=== PATIENT | male | born 1945 | race Caucasian/White ===

== ENCOUNTER 2018-04-06 21:49 | Emergency (ER) | payer OTHER ==
[2018-04-06 22:19] LABS: Absolute Lymphocytes (CBC) 1.1 K/uL (0.7-4.9); Absolute Monocytes 0.7 K/uL (0.1-1.3); Absolute Neutrophil 6.3 K/uL (1.8-8.0); Basophils % 0.3 % (0-1.3); Eosinophils % 1.7 % (0-4.4); Hematocrit 36.4 % (39.6-49.0); MCH 30.9 pg (27.0-35.0); MPV 8.2 fL (7.6-11.3); Monocytes % 8.7 % (3.3-12.3); Protime INR 1.08
[2018-04-06 22:29] LABS: Potassium 4.1 mmol/L (3.5-5.1)
[2018-04-06] MEDS ORDERED: ASPIRIN 600 MG/SUPP PR ONE (22:51)
[2018-04-06] MEDS ORDERED: FOLIC ACID 5 MG/ML VIAL ONE (22:52)
[2018-04-06 23:06] LABS: Urine Blood NEGATIVE (NEG); Urine Glucose NEGATIVE (NEG); Urine Protein NEGATIVE (NEG); Urine Specific Gravity 1.025 (1.005-1.030)
[2018-04-06 23:14] LABS: Urine Bacteria <20 /HPF (NONE SEEN); Urine Culture Reflex Order NOT NEEDED; Urine RBC NONE SEEN /HPF (NONE SEEN)
--- NOTE | 2018-04-06 23:18 | ER ---
Nurse's Notes [facility] Name: Geoffrey Borja Age: 72 yrs Sex: Male : 1945 Arrival Date: 04/06/2018 Time: 21:50 Bed 18 Private MD: Diagnosis: Weakness-Lower Extremities;Difficulty in walking, not elsewhere classified;Speech disturbances, not elsewhere classified;Dysphagia, unspecified Presentation: 04/06 21:50 Presenting complaint: Child states: SLURRED SPEECH AND OFF BALANCE SINCE THIS bp AFTERNOON. Transition of care: patient was not received from another setting of care. An acute neurological deficit is present. The charge nurse has been notified. The patient has been moved to a treatment area. The patients blood glucose was checked before arriving to the hospital and was found to be normal. Onset of symptoms was April 06, 2018 at 17:00. Risk Assessment: Do you want to hurt yourself or someone else? Patient reports no desire to harm self or others. Initial Sepsis Screen: Does the patient meet any 2 criteria? No. Patient's initial sepsis screen is negative. Does the patient have a suspected source of infection? No. Patient's initial sepsis screen is negative. Care prior to arrival: None. 21:50 Method Of Arrival: Wheelchair bp 21:50 Acuity: KOKO 1 bp Triage Assessment: 22:00 The onset of the patients symptoms was April 06, 2018 at 17:00. General: Appears in no bp apparent distress. comfortable, slender, Behavior is calm, cooperative. Pain: Denies pain. Neuro: Level of Consciousness is awake, alert, obeys commands, Oriented to person, place, situation, Supervisor Paste Mixing are equal bilaterally Moves all extremities. Gait is shuffling, Speech is slurred, Reports dizziness, weakness in right leg and left leg. Stroke Activation: Symtpom onset >3 hours and < 6 hours Physician: Stroke Attending; Name: ; Notified At: ; Arrived At: Physician: Chief Stroke Resident; Name: ; Notified At: ; Arrived At: Physician: Stroke Resident; Name: ; Notified At: ; Arrived At: Physician: ED Attending; Name: ELSA; Notified At: 22:00; Arrived At: 22:00 Physician: ED Resident; Name: ; Notified At: ; Arrived At: Historical: - Allergies: 22:13 No Known Allergies; bp - Home Meds: 22:13 aspirin 325 mg Oral tab 1 tab once daily [Active]; atorvastatin 80 mg Oral tab 1 tab bp once daily [Active]; carbidopa-levodopa 25-100 mg Oral TbER 1 tab 3 times per day [Active]; clopidogrel 75 mg Oral tab 1 tab once daily [Active]; finasteride 5 mg Oral tab 1 tab once daily [Active]; gabapentin 100 mg Oral cap 1 caps bedtime [Active]; lisinopril 20 mg Oral tab 1 tab once daily [Active]; multivitamin Oral cap [Active]; - PMHx: 22:13 CVA; Diabetes - NIDDM; Hypertension; neuropathy; bp - Immunization history:: Adult Immunizations up to date. - Social history:: Smoking status: Patient/guardian denies using tobacco. - Ebola Screening: : Patient negative for fever greater than or equal to 101.5 degrees Fahrenheit, and additional compatible Ebola Virus Disease symptoms Patient denies exposure to infectious person Patient denies travel to an Ebola-affected area in the 21 days before illness onset No symptoms or risks identified at this time. Screenin:30 Abuse screen: Denies threats or abuse. Denies injuries from another. Nutritional ao screening: No deficits noted. Tuberculosis screening: No symptoms or risk factors identified. Fall Risk Fall in past 12 months (25 points). Secondary diagnosis (15 points) impaired mobility, IV access (20 points). Ambulatory Aid- Crutches/Cane/Walker (15 pts). Gait- Weak (10 pts.). Mental Status- Overestimates/Forgets Limitations (15 pts.). Total Miguel Fall Scale indicates High Risk Score (45 or more points). Fall prevention measures have been instituted. Placed Close to Nursing Station Frequent Obs/Assessments Occuring As available patient and family educated on Fall Prevention Program and Strategies. Assessment: 22:05 General: Appears in no apparent distress. comfortable, slender, well groomed, well ao developed, well nourished, Behavior is calm, listless. Pain: Denies pain. Neuro: Level of Consciousness is awake, confused, listless, Oriented to person, place, time, Moves all extremities. Weakness in right leg(s) Speech is slurred, Facial droop on right. Cardiovascular: Heart tones S1 S2 Capillary refill < 3 seconds Patient's skin is warm and dry. Respiratory: Airway is patent Respiratory effort is even, unlabored, Respiratory pattern is regular, symmetrical. GI: Abdomen is non-distended. : No signs and/or symptoms were reported regarding the genitourinary system. EENT: No signs and/or symptoms were reported regarding the EENT system. Derm: Skin is intact, Skin is pink, warm \T\ dry. normal, Skin temperature is warm. Musculoskeletal: Circulation, motion, and sensation intact. Range of motion: intact in all extremities. 22:13 The patient has not been NPO before screening. The patient is alert, and able to follow bp commands. The patient exhibits slurred or garbled speech. The patient is not exhibiting difficulty speaking. The patient does not exhibit difficulty understanding words. The patient is able to swallow own secretions with no drooling or need for suction. The patient did not tolerate one teaspoon of water. Drooling, immediate coughing, gurgling, or clearing of the throat was noted. Bedside swallow screening discontinued. Patient kept NPO until cleared by Speech Therapy or Physician. The patient failed the bedside swallow screening. The patient will be kept NPO until cleared by Speech Therapy or Physician. Provider notified of bedside swallow screening results: Jeffrey Martinez MD. Reassessment: PT RETURNED FROM CT. FAIL B/S SWALLOW SCREEN. 22:13 The patient did not tolerate 90mL of water. Drooling, immediate coughing, gurgling, or bp clearing of the throat was noted. Bedside swallow screening discontinued. Patient kept NPO until cleared by Speech Therapy or Physician. 22:32 Reassessment: Patient felt Swallow screen. Will keep NPO until further evaluation. ao 23:08 Reassessment: Patient appears in no apparent distress at this time. Patient and/or ao family updated on plan of care and expected duration. Pain level reassessed. Patient is alert, oriented x 3, equal unlabored respirations, skin warm/dry/pink. Patient to be transferred. 23:26 Reassessment: 2149 Patient arrive, 2149 Last know well was 1700, 2200 ED Physician at ao bedside, 2199 Called code stroke, [address], 2221 Accu check completed, 2202 IV started 20 G right FA, 2203 Labs sent, 2216 EKG done, 2216 PCXR, 2216 Bed swallow screen done, [address], 2225 Decision to transferred patient by Dr Martinez and HUNG Ochoa. 23:34 Reassessment: [address] Martinez by Dr Chaves. ao 23:34 Reassessment: Called report to NORM Zavala and was on hold for about 10 Min. Nurse ao will call back to get report. 23:49 Reassessment: Called back and report was in process to be given to RADHA Wiggins. Room ao assignment was change by the transport center. Patient to go to a different unit. Transfer center will call back with new nurse assigned to patient. 04/07 00:31 T-PA (Activase) Screening: Contraindications: Other: SS off time frame. ao Vital Signs: 04/06 22:00 BP 148 / 82; Pulse 77; Resp 16; Pulse Ox 96% ; Weight 78.02 kg; Height 5 ft. 9 in. bp (175.26 cm); 22:30 BP 139 / 80; Pulse 76; Resp 18; Pulse Ox 97% ; ao 23:00 BP 121 / 88; Pulse 66; Resp 16; Pulse Ox 97% on R/A; ao 04/07 00:00 BP 133 / 78; Pulse 74; Resp 18; Pulse Ox 98% on R/A; ao 00:30 BP 124 / 72; Pulse 72; Resp 16; Pulse Ox 97% on R/A; ao 08 22:00 Body Mass Index 25.40 (78.02 kg, 175.26 cm) bp NIH Stroke Scale Scores: 04/06 22:00 NIHSS Score: 4 bp 22:32 NIHSS Score: 3 cp ED Course: 21:50 Patient arrived in ED. es 22:00 Inserted saline lock: 20 gauge in right antecubital area, using aseptic technique. bp Blood collected. 22:03 Daniel Pleitez, RN is Primary Nurse. ao 22:11 Triage completed. bp 22:15 Arm band placed on. bp 22:18 Ct Stroke Brain Wo Cont In Process Unspecified. EDMS 22:19 Kaden Carlos PA is PHCP. cp 22:19 Jeffrey Martinez MD is Attending Physician. cp 22:24 Stroke CXR 1 View In Process Unspecified. EDMS 22:31 Patient has correct armband on for positive identification. quality assurance monitor final on. Pulse ao ox on. NIBP on. 04/07 00:30 No provider procedures requiring assistance completed. Patient transferred, IV remains ao in place. Administered Medications: 04/06 22:56 Drug: Aspirin Suppository 300 mg Route: NC; ao 08 00:32 Follow up: Response: No adverse reaction ao 08 22:56 Drug: foLIC Acid 1 mg Route: IVPB; Site: right forearm; ao 08 00:33 Follow up: IV Status: Completed infusion; IV Intake: 15ml ao Point of Care Testing: Blood Glucose: 04/06 22:31 Blood Glucose: 124 mg/dL; ao Ranges: Intake: 04/07 00:33 IV: 15ml; Total: 15ml. ao Outcome: 04/06 23:17 ER care complete, transfer ordered by MD. rand 04/07 00:31 Transferred by ground EMS to [facility], Transfer form completed. ao X-rays sent w/ patient. Condition: stable Instructed on the need for transfer. 00:32 Patient left the ED. ao NIH Stroke Scale - NIH Stroke Score Date: 04/06/2018 Time: 22:00 Total Score = 4 1a. Level of Consciousness (LOC) - 0(Alert) 1b. Level of Consciousness (LOC) (Year \T\ Age) - 1(One) 1c. LOC Commands (Open \T\ Closes Eyes/Mortgage Loan Coordinator) - 0(Both) 2. Best Gaze (Lateral Gaze Paresis) - 0(Normal) 3. Visual Field Loss - 0(No visual loss) 4. Facial Palsy - 1(Minor Paralysis) 5a. Left Arm: Motor (10-second hold) - 0(No drift) 5b. Right Arm: Motor (10-second hold) - 0(No drift) 6a. Left Leg: Motor (5-second hold - always test supine) - 0(No drift) 6b. Right Leg: Motor (5-second hold - always test supine) - 1(Drift) 7. Limb Ataxia (finger/nose \T\ heel/pang - test with eyes open) - 0(Absent) 8. Sensory Loss (pinprick arms/legs/face) - 0(Normal) 9. Best Language: Aphasia (description/naming/reading) - 0(No aphasia) 10. Dysarthria (speech clarity - read or repeat words) - 1(Mild to Moderate) 11. Extinction and Inattention (visual/tactile/auditory/spatial/personal) - 0(No abnormality) Initials: bp NIH Stroke Scale - NIH Stroke Score Date: 04/06/2018 Time: 22:32 Total Score = 3 1a. Level of Consciousness (LOC) - 0(Alert) 1b. Level of Consciousness (LOC) (Year \T\ Age) - 0(Both) 1c. LOC Commands (Open \T\ Closes Eyes/Mortgage Loan Coordinator) - 0(Both) 2. Best Gaze (Lateral Gaze Paresis) - 0(Normal) 3. Visual Field Loss - 0(No visual loss) 4. Facial Palsy - 1(Minor Paralysis) 5a. Left Arm: Motor (10-second hold) - 0(No drift) 5b. Right Arm: Motor (10-second hold) - 0(No drift) 6a. Left Leg: Motor (5-second hold - always test supine) - 0(No drift) 6b. Right Leg: Motor (5-second hold - always test supine) - 1(Drift) 7. Limb Ataxia (finger/nose \T\ heel/pang - test with eyes open) - 0(Absent) 8. Sensory Loss (pinprick arms/legs/face) - 0(Normal) 9. Best Language: Aphasia (description/naming/reading) - 0(No aphasia) 10. Dysarthria (speech clarity - read or repeat words) - 1(Mild to Moderate) 11. Extinction and Inattention (visual/tactile/auditory/spatial/personal) - 0(No abnormality) Initials: cp Signatures: Dispatcher [employer] Rosalba Rodríguez Corey, PA PA cp Ortiz, Alex, RN RN ao Peltier, Brian, RN RN bp
--- NOTE | 2018-04-06 23:18 | EDPHYS ---
Physician Documentation [facility] Name: Geoffrey Borja Age: 72 yrs Sex: Male : 1945 Arrival Date: 04/06/2018 Time: 21:50 Bed 18 Private MD: ED Physician Jeffrey Martinez HPI: 04/06 22:15 This 72 yrs old Male presents to ER via Wheelchair with complaints of S/S of cp Possible Stroke. 22:15 The patient's problem is reported as weakness, in the right lower extremity, in the cp left lower extremity, difficulty walking and slurred speech. 22:15 Onset: The symptoms/episode began/occurred today, approximately 1800. Duration: This cp was a single incident. Associated signs and symptoms: Pertinent negatives: abdominal pain, blurred vision, chest pain, confusion, headache, palpitations, vomiting. Severity of symptoms: in the emergency department the symptoms are unchanged. Historical: - Allergies: 22:13 No Known Allergies; bp - Home Meds: 22:13 aspirin 325 mg Oral tab 1 tab once daily [Active]; atorvastatin 80 mg Oral tab 1 tab bp once daily [Active]; carbidopa-levodopa 25-100 mg Oral TbER 1 tab 3 times per day [Active]; clopidogrel 75 mg Oral tab 1 tab once daily [Active]; finasteride 5 mg Oral tab 1 tab once daily [Active]; gabapentin 100 mg Oral cap 1 caps bedtime [Active]; lisinopril 20 mg Oral tab 1 tab once daily [Active]; multivitamin Oral cap [Active]; - PMHx: 22:13 CVA; Diabetes - NIDDM; Hypertension; neuropathy; bp - Immunization history:: Adult Immunizations up to date. - Social history:: Smoking status: Patient/guardian denies using tobacco. - Ebola Screening: : Patient negative for fever greater than or equal to 101.5 degrees Fahrenheit, and additional compatible Ebola Virus Disease symptoms Patient denies exposure to infectious person Patient denies travel to an Ebola-affected area in the 21 days before illness onset No symptoms or risks identified at this time. ROS: 22:18 Constitutional: Negative for body aches, chills, fever, poor PO intake. cp 22:18 Eyes: Negative for injury, pain, redness, and discharge. cp 22:18 ENT: Positive for difficulty swallowing, Negative for drainage from ear(s), ear pain, sore throat, difficulty handling secretions. 22:18 Neck: Negative for pain with movement, pain at rest, stiffness, tenderness. 22:18 Cardiovascular: Negative for chest pain, edema, palpitations. 22:18 Respiratory: Negative for cough, shortness of breath, wheezing. 22:18 Abdomen/GI: Negative for abdominal pain, nausea, vomiting, and diarrhea, constipation, black/tarry stool, rectal bleeding. 22:18 Back: Negative for pain at rest, pain with movement, radiated pain. 22:18 Neuro: Positive for speech changes, weakness, of the left leg and right leg, Negative for altered mental status, dizziness, headache, syncope, near syncope. 22:18 All other systems are negative. Exam: 22:23 Constitutional: The patient appears in no acute distress, alert, awake, cp non-diaphoretic, non-toxic, well developed, well nourished. 22:23 Eyes: Pupils equal round and reactive to light, extra-ocular motions intact. Lids and cp lashes normal. Conjunctiva and sclera are non-icteric and not injected. Cornea within normal limits. Periorbital areas with no swelling, redness, or edema. 22:23 Head/face: Noted is mild facial droop left side. 22:23 ENT: External ear(s): are unremarkable, Nose: is normal, Mouth: Lips: moist, Oral mucosa: pink and intact, moist, Posterior pharynx: is normal, airway is patent. 22:23 Neck: ROM/movement: is normal, is supple, without pain, no range of motions limitations, no meningismus, no nuchal rigidity. 22:23 Chest/axilla: Inspection: normal, Palpation: is normal, no crepitus, no tenderness. 22:23 Cardiovascular: Rate: normal, Rhythm: regular, Pulses: Pulses are 2+ in right radial artery and left radial artery. Edema: is not appreciated, JVD: is not appreciated. 22:23 Respiratory: the patient does not display signs of respiratory distress, Respirations: normal, no use of accessory muscles, no retractions, no splinting, no tachypnea, labored breathing, is not present, Breath sounds: are clear throughout, no decreased breath sounds, no stridor, no wheezing. 22:23 Abdomen/GI: Inspection: abdomen appears normal, Bowel sounds: active, all quadrants, Palpation: abdomen is soft and non-tender, in all quadrants, rebound tenderness, is not appreciated, voluntary guarding, is not appreciated, involuntary guarding, is not appreciated. 22:23 Back: pain, is absent, ROM is normal. 22:23 Skin: cellulitis, is not appreciated, no rash present. 22:23 Neuro: Orientation: to person, place, Mentation: lucid, able to follow commands, Cerebellar function: Romberg testing is negative, normal finger to nose testing, heel to pang testing is normal, Motor: moves all fours, strength is 4/5 in the right leg, Sensation: no obvious gross deficits, Gait: not tested. 22:32 Radiologist reports: no acute findings cp 22:35 ECG was reviewed by the Attending Physician. cp Vital Signs: 22:00 BP 148 / 82; Pulse 77; Resp 16; Pulse Ox 96% ; Weight 78.02 kg; Height 5 ft. 9 in. bp (175.26 cm); 22:30 BP 139 / 80; Pulse 76; Resp 18; Pulse Ox 97% ; ao 23:00 BP 121 / 88; Pulse 66; Resp 16; Pulse Ox 97% on R/A; ao 08 00:00 BP 133 / 78; Pulse 74; Resp 18; Pulse Ox 98% on R/A; ao 00:30 BP 124 / 72; Pulse 72; Resp 16; Pulse Ox 97% on R/A; ao 04/06 22:00 Body Mass Index 25.40 (78.02 kg, 175.26 cm) bp NIH Stroke Scale Scores: 04/06 22:00 NIHSS Score: 4 bp 22:32 NIHSS Score: 3 cp MDM: 22:00 ED course: VSS. Patient is not a candidate for tpa as onset of symptoms were cp approximately 1800 this evening. 22:19 Patient medically screened. cp 23:00 Data reviewed: vital signs, nurses notes, lab test result(s), EKG, radiologic studies, cp CT scan. 23:00 Test interpretation: by ED physician or midlevel provider: ECG, plain radiologic cp studies. 23:04 Physician consultation: DR Ruff, neurologist \T\[facility], will consult on patient and cp requests patient be admitted to hospitalist. 04/06 22:17 Order name: Basic Metabolic Panel; Complete Time: 22:52 EDMS 08/11 22:52 Interpretation: Normal except: GLUC 122; BUN 23; GFR 59. cp /11 22:17 Order name: CBC with Automated Diff; Complete Time: 22:52 EDMS 08/11 22:17 Order name: Protime (+INR); Complete Time: 22:52 EDMS /11 22:20 Order name: Troponin (emerg Dept Use Only) / 22:20 Order name: Basic Metabolic Panel / 22:10 Order name: Ct Stroke Brain Wo Cont EDMS /11 22:20 Order name: Urine Microscopic Only /11 22:21 Order name: Troponin (Emerg Dept Use Only); Complete Time: 22:52 EDMS 08/11 22:33 Order name: PTT, Activated Partial Thromb; Complete Time: 22:52 EDMS 08/11 23:01 Order name: Urine Dipstick--Ancillary (enter results); Complete Time: 23:12 ms 11 22:20 Order name: Stroke CXR 1 View 04/06 22:20 Order name: Accucheck; Complete Time: 22:29 cp /11 22:20 Order name: Cardiac monitoring; Complete Time: 22:29 cp 08/11 22:20 Order name: EKG - Nurse/Tech; Complete Time: 22:29 cp /11 22:20 Order name: IV Saline Lock; Complete Time: 22:31 cp /11 22:20 Order name: Labs collected and sent; Complete Time: 22:29 / 22:20 Order name: NPO; Complete Time: 22:29 cp / 22:20 Order name: O2 Per Protocol; Complete Time: 22:29 cp / 22:20 Order name: O2 Sat Monitoring; Complete Time: 22:29 /11 22:20 Order name: Stroke Swallow Screen; Complete Time: 22:29 cp /11 22:20 Order name: Urine Dipstick-Ancillary (obtain specimen); Complete Time: 22:57 cp EC:35 Rate is 78 beats/min. Rhythm is regular. RI interval is normal. QRS interval is cp prolonged at 106 msec. QT interval is normal. Interpreted by me. Reviewed by me. Administered Medications: 22:56 Drug: Aspirin Suppository 300 mg Route: RI; ao 04/07 00:32 Follow up: Response: No adverse reaction ao 04/06 22:56 Drug: foLIC Acid 1 mg Route: IVPB; Site: right forearm; ao 04/07 00:33 Follow up: IV Status: Completed infusion; IV Intake: 15ml ao Point of Care Testing: Blood Glucose: 04/06 22:31 Blood Glucose: 124 mg/dL; ao Ranges: Critical Glucose Levels:Adult <50 mg/dl or >400 mg/dl <40 mg/dl or >180 mg/dl Disposition: 04/06/18 23:17 Transfer ordered to [facility]. Diagnosis are Weakness - Lower Extremities, Difficulty in walking, not elsewhere classified, Speech disturbances, not elsewhere classified, Dysphagia, unspecified. - Reason for transfer: Higher level of care. - Accepting physician is Kerrie. - Condition is Stable. - Problem is new. - Symptoms have improved. NIH Stroke Scale - NIH Stroke Score Date: 04/06/2018 Time: 22:00 Total Score = 4 1a. Level of Consciousness (LOC) - 0(Alert) 1b. Level of Consciousness (LOC) (Year \T\ Age) - 1(One) 1c. LOC Commands (Open \T\ Closes Eyes/Boat Canvas Maker And Installer) - 0(Both) 2. Best Gaze (Lateral Gaze Paresis) - 0(Normal) 3. Visual Field Loss - 0(No visual loss) 4. Facial Palsy - 1(Minor Paralysis) 5a. Left Arm: Motor (10-second hold) - 0(No drift) 5b. Right Arm: Motor (10-second hold) - 0(No drift) 6a. Left Leg: Motor (5-second hold - always test supine) - 0(No drift) 6b. Right Leg: Motor (5-second hold - always test supine) - 1(Drift) 7. Limb Ataxia (finger/nose \T\ heel/pang - test with eyes open) - 0(Absent) 8. Sensory Loss (pinprick arms/legs/face) - 0(Normal) 9. Best Language: Aphasia (description/naming/reading) - 0(No aphasia) 10. Dysarthria (speech clarity - read or repeat words) - 1(Mild to Moderate) 11. Extinction and Inattention (visual/tactile/auditory/spatial/personal) - 0(No abnormality) Initials: bp NIH Stroke Scale - NIH Stroke Score Date: 04/06/2018 Time: 22:32 Total Score = 3 1a. Level of Consciousness (LOC) - 0(Alert) 1b. Level of Consciousness (LOC) (Year \T\ Age) - 0(Both) 1c. LOC Commands (Open \T\ Closes Eyes/Boat Canvas Maker And Installer) - 0(Both) 2. Best Gaze (Lateral Gaze Paresis) - 0(Normal) 3. Visual Field Loss - 0(No visual loss) 4. Facial Palsy - 1(Minor Paralysis) 5a. Left Arm: Motor (10-second hold) - 0(No drift) 5b. Right Arm: Motor (10-second hold) - 0(No drift) 6a. Left Leg: Motor (5-second hold - always test supine) - 0(No drift) 6b. Right Leg: Motor (5-second hold - always test supine) - 1(Drift) 7. Limb Ataxia (finger/nose \T\ heel/pang - test with eyes open) - 0(Absent) 8. Sensory Loss (pinprick arms/legs/face) - 0(Normal) 9. Best Language: Aphasia (description/naming/reading) - 0(No aphasia) 10. Dysarthria (speech clarity - read or repeat words) - 1(Mild to Moderate) 11. Extinction and Inattention (visual/tactile/auditory/spatial/personal) - 0(No abnormality) Initials: Addendum: 04/08/2018 04:43 Co-signature as Attending Physician, Jeffrey Martinez MD. Signatures: Dispatcher [employer] EDMS Kaden Carlos PA PA cp Ortiz, Alex, RN RN ao Starr, Gregory, MD MD Blaise Siegel RN RN bp Corrections: (The following items were deleted from the chart) 04/06 22:35 22:21 Basic Metabolic Panel ordered. EDMS EDMS 22:35 22:21 CBC+H.LAB.BRZ ordered. EDMS EDMS 22:35 22:21 PROTIME (+INR)+COAG.LAB.BRZ ordered. EDMS EDMS 22:35 22:21 PTT, ACTIVATED+COAG.LAB.BRZ ordered. EDMS EDMS 22:44 22:21 CT-STROKE BRAIN W/O CONTRAST+CT.RAD.BRZ ordered. EDMS EDMS 23:17 22:31 The patient's problem is reported as slurred speech and difficulty cp walking due to reported weakness of left leg, cp 23:17 22:31 Onset: The symptoms/episode began/occurred today, at 18:00, cp cp 23::31 Duration: The episode is continuous, cp cp 23:17 22:31 Patient's baseline: The patient has a previous history of CVA, cp cp 23:17 22:31 This 72 yrs old Male presents to ER via Wheelchair with cp complaints of S/S of Possible Stroke. cp :18 22:37 ED course: VSS. Patient is not a candidate for tpa as onset of symptoms cp were before 1800. cp 23:25 23:17 04/06/2018 23:17 Transfer ordered to [facility]. cp Diagnosis is Weakness - Lower Extremities; Difficulty in walking, not elsewhere classified. Reason for transfer: Higher level of care. Accepting physician is Ancey. Condition is Stable. Problem is new. Symptoms have improved. cp 23:26 23:25 04/06/2018 23:17 Transfer ordered to [facility]. cp Diagnosis is Weakness - Lower Extremities; Difficulty in walking, not elsewhere classified. Reason for transfer: Higher level of care. Accepting physician is Kerrie. Condition is Stable. Problem is new. Symptoms have improved. cp 04/07 00:32 04/06 23:26 04/06/2018 23:17 Transfer ordered to [facility]. Diagnosis is Weakness - Lower Extremities; Difficulty in walking, not elsewhere classified; Speech disturbances, not elsewhere classified; Dysphagia, unspecified. Reason for transfer: Higher level of care. Accepting physician is Kerrie. Condition is Stable. Problem is new. Symptoms have improved. cp
[2018-04-07 01:39] VITALS: BP 124/72; O2SAT 97
--- NOTE | 2018-04-07 08:04 | RAD REPORT ---
EXAM DESCRIPTION: CT - Ct Stroke Brain Wo Cont - 04/07/2018 7:03 am CLINICAL HISTORY: Stroke protocol study, left facial droop A preliminary written report was provided at the time of the study, and the report was reviewed prio r to final dictation. Findings also provided via direct telephone conversation 04/06/2018 10:20 p.m. CLINICAL HISTORY: CT head May 2017 TECHNIQUE: Axial 5 millimeter thick images of the head were obtained without IV contrast. All CT scans are performed using dose optimization technique as appropriate and may include automated exposure control or mA/KV adjustment according to patient size. FINDINGS: No intracranial hemorrhage, mass, or cerebral edema. No acute cortical based infarction id entified. No cortical edema or sulcal effacement. Patient has significant chronic ischemic change in the cerebral white matter. Areas of white matter old infarction are noted in the frontal lobe white m atter extending into each basal ganglia. Bilateral thalamus old infarction changes are present. Patie nt has a large old infarction in the inferior right cerebellum. No extra-axial fluid collections. Gr ay matter-white matter differentiation is preserved. Moderate atrophy changes are present. Ventricular size is in proportion to volume loss. Arterial and physiologic calcifications are present. Visualized portions of the mastoid air cells, paranasal sinuses, and orbits are unremarkable. IMPRESSION: No CT evidence of acute intracranial process. Patient has advanced atrophy and chronic ischemic changes along with multifocal remote infarction. In tracranial findings are not substantially different from May 2017. Chronic ischemic changes can mask nonhemorrhagic acute infarction. MR brain followup can be obtained if there is ongoing concern for acute ischemia.
--- NOTE | 2018-04-07 08:06 | RAD REPORT ---
EXAM DESCRIPTION: RAD - Chest Single View - 04/06/2018 10:24 pm CLINICAL HISTORY: Slurred speech, shortness of breath, Stroke protocol chest film COMPARISON: May 2017 TECHNIQUE: AP portable chest image was obtained 2220 hours . FINDINGS: No failure or volume overload. Heart size is normal. Pulmonary vasculature within normal l imits. Lung base markings are mildly prominent. There is a fractional increased over the prior study. Interval change is very minimal. Medial right base early infiltrate cannot be excluded and needs cor relation with any history or clinical exam findings. No measurable pleural effusion and no pneumothor ax. No gross bony abnormality seen. No acute aortic findings suspected. IMPRESSION: Chest exam is generally stable from the May 2017 study. Subtle increase in lung markings medial right base could be very early infiltrate. Correlation is nee ded with any history or exam findings for an early right base pneumonia.
--- NOTE | 2018-04-08 08:31 | EKG ---
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
== END 2018-04-07 00:32 | disposition short-term general hospital (02) ==
LOC: ER 21:49
DX: R26.2 Difficulty in walking, not elsewhere classified (principal); R47.9 Unspecified speech disturbances; R13.10 Dysphagia, unspecified; I10 Essential (primary) hypertension; E11.9 Type 2 diabetes mellitus without complications; Z79.82 Long term (current) use of aspirin; Z86.73 Personal history of transient ischemic attack (TIA), and cerebral infarction without residual deficits
CPT/HCPCS: 36415; 70450; 71045; 80048; 81003; 81015; 82962; 84484; 85025; 85610; 85730; 93005; 96365; 96366; 99291